=== PATIENT | female | born 1975 | race American Indian/Alaskan Native ===

== ENCOUNTER 2016-07-07 05:31 | Emergency (ER) | payer SELFPAY ==
[2016-07-07 06:13] VITALS: BP 131/88
[2016-07-07 07:23] LABS: Anion Gap 14 mmol/L; BUN/Creatinine Ratio 18.75; Blood Urea Nitrogen 15 mg/dL (7-17); Calcium 8.7 mg/dL (8.4-10.2); Carbon Dioxide 26 mmol/L (22-30); Chloride 101.3 mmol/L (98-107); Glucose 93 mg/dL (65-100); Potassium 4.3 mmol/L (3.6-5.0); Sodium 137 mmol/L (137-145)
[2016-07-07 07:25] LABS: Basophils % (Auto) 0.4 % (0.0-1.8); Eosinophils % (Auto) 1.6 % (0.0-4.3); Hematocrit 34.1 % (30.3-42.9); Hemoglobin 11.3 gm/dl (10.1-14.3); Mean Corpuscular HGB Conc 33 % (30-34); Mean Corpuscular Hemoglobin 31 pg (28-32); Mean Corpuscular Volume 93 fl (79-97); Platelet Count 178 K/mm3 (140-440); Red Blood Count 3.68 M/mm3 (3.65-5.03); White Blood Count 5.2 K/mm3 (4.5-11.0)
[2016-07-07 07:28] LABS: INR 0.98 (0.87-1.13)
[2016-07-07 07:29] LABS: Partial Thromboplastin Time 26.1 Sec. (24.2-36.6)
[2016-07-07] MEDS ORDERED: MOTRIN PO ONE (11:48)
--- NOTE | 2016-07-07 11:54 | Emergency Department Report ---
Entered by VILMA NUÑEZ, acting as scribe for JULIO EATON PA. ED Extremity Problem HPI - General Chief complaint: Extremity Problem,Nontraumatic Stated complaint: LEGS CRAMPING Time Seen by Provider: 07/07/16 11:23 Source: patient Mode of arrival: Ambulatory Limitations: No Limitations - History of Present Illness Initial comments: 41 y/o female with no significant PMHx, presents to the ED c/o bilateral anterior thigh pain beginning yesterday morning. The pain in the affected areas is described as cramping. The bilateral anterior thigh pain radiates to the bilateral lower legs. She denies SOB, chest pain, nausea, vomiting, swelling, headache, weakness, numbness, and abdominal pain. Noted the patient has been working more often and is on her feet for much of the day. She denies acute trauma or injury. MD Complaint: extremity pain (starting in the bilateral groin area and radiating down the bilateral legs) -: days(s) (1 day ago, yesterday morning) Location: bilateral lower extremity (anterior thighs and posterior lower legs) History of Same: No -: No arthralgia, No fever, No associated dyspnea, No associated chest pain Radiation: other (radiates down the bilateral legs) Severity scale (0 -10): 4 Quality: other (cramping) Consistency: constant Improves with: nothing Worsens with: walking, exertion Associated Symptoms: denies: chest pain, shortness of breath, fever, myalgias, arthralgias, rash, other (swelling, nausea, vomiting, headache, chills, dysuria , hematuria) - Related Data Previous Rx's Medication Instructions Recorded Last Taken Type Ibuprofen [Motrin 800 MG tab] 800 mg PO Q8HR #30 tablet 07/07/16 Unknown Rx Allergies Allergy/AdvReac Type Severity Reaction Status Date / Time codeine Allergy Swelling Verified 07/07/16 06:08 ED Review of Systems Comment: All other systems reviewed and negative Constitutional: denies: chills, fever ENT: denies: ear pain, throat pain Respiratory: denies: cough, shortness of breath, wheezing Cardiovascular: denies: chest pain Gastrointestinal: denies: abdominal pain, nausea, vomiting, diarrhea Genitourinary: denies: dysuria, hematuria Musculoskeletal: other (bilateral anterior thigh pain radiatign to the posterior lower legs) Skin: denies: rash, other (swelling) Neurological: denies: headache, weakness, numbness ED Past Medical Hx - Past Medical History Previous Medical History?: Yes Additional medical history: Obesity - Surgical History Past Surgical History?: No - Social History Smoking Status: Never Smoker Substance Use Type: None - Medications Home Medications: Home Medications Medication Instructions Recorded Confirmed Last Taken Type Ibuprofen [Motrin 800 MG tab] 800 mg PO Q8HR #30 tablet 07/07/16 Unknown Rx ED Physical Exam - General Limitations: No Limitations - Other Other exam information: GENERAL: Patient is alert and oriented x 3. No apparent distress, normal gait, atraumatic. HEAD: Head is normocephalic and atraumatic. EYES: Extraocular movements are intact. Pupils are equal, round, and reactive to light and accommodation. EARS: Symmetrical, atraumatic, non tender, ear canal clear with moderate cerumen , tympanic membrane non inflamed. Gross auditory nml bilaterally. NOSE: Nose symmetrical, nontender. Nares appeared normal. MOUTH:Mouth is well hydrated and without lesions. Mucous membranes are moist. Uvula midline. Tongue not elevated. Posterior pharynx clear, no exudate or lesions. Tonsils are not erythematous or swollen. Patent airway. NECK: Supple. Non edematous, no carotid bruits. No lymphadenopathy or thyromegaly. LUNGS: Symmetrical with respiration. No wheezing, rales or crackles, CTAB. HEART: Regular rate and rhythm with normal S1/S2 present. No murmurs, rubs, or gallops. ABDOMEN: Soft, nondistended. Nontender to palpation on all quadrants. No organomegaly was noted. Positive bowel sounds. No CVA tenderness. EXTREMITIES/MUSCULOSKELETAL: No cyanosis, clubbing, rash, lesions or edema. Full ROM bilaterally. UE/LE Pulses 2+ bilaterally. LE and UE 5+ strength bilaterally. No thigh tenderness bilaterally and no groin tenderness bilaterally. Calves are equal in circumference bilaterally with no tenderness. SKIN: Warm and dry. No lesions, ulceration or induration present. No swelling. NEUROLOGIC: No focal deficit., ED Course Vital Signs 07/07/16 06:08 Temperature 97.8 F Pulse Rate 73 Respiratory 20 Rate Blood Pressure 131/88 [Right] O2 Sat by Pulse 100 Oximetry ED Medical Decision Making - Lab Data Result diagrams: 07/07/16 06:52 03/22/17 06:52 - Medical Decision Making Patient was evaluated by the provider in fast track. 41 y/o female presents complaining of bilateral anterior thigh pain radiating to the bilateral posterior lower legs beginning yesterday morning. Patient denies any trauma or injury and states she has been on her feet at work. Venous Doppler US shows no abnormalities, and further imaging is not necessary following the patient's exam and Hx. Patient will be sent home with 800 mg ibuprofen. Discussed with the patient to follow up with a PCP as referred and to return to the ED if symptoms return or worsen. Patient states understanding and will follow instructions. Vital signs stable, patient is in no acute distress. ED Disposition Clinical Impression: Bilateral groin pain Disposition: DISCHARGED TO HOME OR SELFCARE Is pt being admited?: No Does the pt Need Aspirin: No Condition: Stable Additional Instructions: It is very important for you to drink plenty of fluids rest and take pain medication as prescribed. Please follow up with the primary care provider for further evaluation.. Prescriptions: Ibuprofen [Motrin 800 MG tab] 800 mg PO Q8HR #30 tablet Referrals: PRIMARY CARE, [Primary Care Provider] - 3-5 Days Forms: Work/School Release Form(ED) This documentation as recorded by the SAVANNAH dempsey GRACE,accurately reflects the service I personally performed and the decisions made by me,JULIO EATON PA.
--- NOTE | 2016-07-07 16:11 | Vascular Lab Report ---
LOWER EXTREMITY VENOUS DUPLEX: REASON FOR EXAM: Pain of the lower extremities. COMMENTS ON THE RIGHT: All veins visualized are freely compressible without evidence of internal echogenicity. Flow is spontaneous and phasic throughout. COMMENTS ON THE LEFT: All veins visualized are freely compressible without evidence of internal echogenicity. Flow is spontaneous and phasic throughout. IMPRESSION: No evidence of acute or chronic deep venous thrombosis in either lower extremity.
== END 2016-07-07 12:11 | disposition home or self-care (01) ==
LOC: ED 05:31
DX: R10.30 Lower abdominal pain, unspecified (principal); Z88.6 Allergy status to analgesic agent
CPT/HCPCS: 36415; 80048; 83735; 84703; 85025; 85610; 85730; 93970